=== PATIENT | male | born 1970 | race Caucasian/White ===

== ENCOUNTER 2025-03-10 02:13 | Inpatient (IN) | payer BC, SELFPAY ==
[2025-03-10] VITALS (15 sets, daily range): BP systolic 102–140; BP diastolic 49–95; PULSE 84–111; RESP 12–18; TEMP 36.7–37.3; O2SAT 94–98; BMI 28.5
--- NOTE | 2025-03-10 03:12 | CTR_ITS ---
PROCEDURE INFORMATION: Exam: CT Abdomen And Pelvis With Contrast Exam date and time: 03/10/2025 3:44 AM Age: 54 years old Clinical indication: Mass, lump, or swelling; Other: Scrotal/perineal; Other: Scrotal pain; Pain and swelling to scrotum and perineum; Additional info: Scrotal abscess ? fornier's TECHNIQUE: Imaging protocol: Computed tomography of the abdomen and pelvis with contrast. Radiation optimization: All CT scans at this facility use at least one of these dose optimization techniques: automated exposure control; mA and/or kV adjustment per patient size (includes targeted exams where dose is matched to clinical indication); or iterative reconstruction. Contrast material: OMNI 350; Contrast volume: 100 ml; Contrast route: INTRAVENOUS (IV); COMPARISON: CR XR chest 1V [id number] 05/21/2019 11:57 PM RADIATION DOSE METRICS: Total DLP (mGy-cm): 1549.03 FINDINGS: Liver: Normal. No mass. Gallbladder and biliary ducts: Normal. No calcified stones. No ductal dilation. Pancreas: Normal. No ductal dilation. Spleen: Normal. No splenomegaly. Adrenal glands: Normal. No mass. Kidneys and ureters: Normal. No hydronephrosis. Stomach and bowel: Unremarkable. No obstruction. No mucosal thickening. Appendix: No evidence of appendicitis. Intraperitoneal space: Unremarkable. No free air. No significant fluid collection. Vasculature: Unremarkable. No abdominal aortic aneurysm. Lymph nodes: Mildly prominent subcentimeter bilateral inguinal lymph nodes, likely reactive. Urinary bladder: Unremarkable as visualized. Reproductive: Unremarkable as visualized. Bones/joints: Unremarkable. No acute fracture. Soft tissues: Diffuse scrotal edema with apparent 2.5 x 1.5 cm hypoattenuating posterior scrotal collection. CT/CT abdomen pelvis w con* [id number] IMPRESSION: Diffuse scrotal edema with apparent 2.5 x 1.5 cm hypoattenuating posterior scrotal collection. Suspected abscess. Scrotal ultrasound may be helpful for further evaluation.
[2025-03-10 03:45] LABS: Hematocrit 44.0 % (37-53); Hemoglobin 15.60 g/dL (11.27-16.99); Mean Corpuscular HGB Conc 35.5 g/dL (30-55); Mean Corpuscular Hemoglobin 31.5 pg (27-33); Mean Corpuscular Volume 88.7 fl (82-101); Nucleated Red Blood Cells % 0 %; Platelet Count 204 10^3/cmm (157-399); Red Blood Count 4.96 10^6/uL (3.85-5.65); White Blood Count 17.95 10^3/uL (3.29-11.43)
[2025-03-10] MEDS: iohexol 350 mg/mL 500 mL Btl (per mL) IV (03:46)
[2025-03-10 03:54] LABS: Alanine Aminotransferase 20 U/L (0-41); Albumin Level 3.8 g/dL (3.5-5.2); Alkaline Phosphatase 101 U/L (40-130); Anion Gap 13.7 (5-19); Aspartate Amino Transferase 14 U/L (0-40); Blood Urea Nitrogen 15 mg/dL (6-20); Calcium 8.9 mg/dL (8.5-10.5); Carbon Dioxide 27 mmol/L (22-29); Chloride 94 mmol/L (98-107); Creatinine Clr Calc Pharmacy 92.9995; Globulin 3.7 g/dL (1.3-4.6); Glucose 108 mg/dL (65-115); Osmolality Calculated 273 mOsm/kg (285-295); Potassium 3.7 mmol/L (3.5-5.1); Sodium 131 mmol/L (136-145); Total Protein 7.5 g/dL (6.6-8.7)
[2025-03-10] MEDS: morphine 4 mg/mL SDV 1 mL IVP ×2 (04:12→14:53)
[2025-03-10] MEDS: piperacillin-tazobactam 3.375 GM in sodium chloride 0.9% (plus) 50 ML IV ×3 (04:14→20:09)
[2025-03-10] MEDS: lidocaine-epi 1% 20 mL INJ 10 ML INJECTION (05:19)
--- NOTE | 2025-03-10 05:24 | W.ED.SKABFB ---
HPI - Skin/Abscess/Foreign Bdy General: Chief complaint: ER Hold Stated complaint: Knot between Legs Time Seen by Provider: 03/10/25 03:04 History of Present Illness: 54 yo M with prior MRSA infection requiring surgical debridement presents with a rapidly enlarging, painful mass at the base of the scrotum. Pt first noticed tenderness earlier today (< 24 h) and describes pain ?like somebody cut me.? Mass now feels ?gumball-sized,? firm, red, and hard. Pt recalls falling eight feet from a ladder two weeks ago and wonders if trauma contributed; alternatively suspects an insect bite. No diabetes. Pain significant; seeking relief. No fever, urinary Sx, or systemic complaints mentioned. ROS otherwise not discussed. Related Data Allergies Allergy/AdvReac Type Severity Reaction Status Date / Time No Known Allergies Allergy Verified 03/10/25 02:24 Physical Exam Const: COMMON NORMALS: no acute distress, patient oriented x3 and alert HENMT: COMMON NORMALS: normocephalic and atraumatic HEAD & SCALP: normocephalic and atraumatic Eye: COMMON NORMALS: Equal, round and reactive pupils present, EOMs intact bilaterally and no scleral icterus PUPIL: Yes Equal, round and reactive pupils present Resp: COMMON NORMALS: normal respiratory effort and No retractions Cardio: COMMON NORMALS: regular rate, regular rhythm and No murmurs present (Cardio) RATE: regular rate RHYTHM: regular rhythm GI: COMMON NORMALS: Normal to inspection, nondistended, normoactive bowel sounds present, Soft to palpation and non-tender PALPATION: Yes Soft to palpation Neuro: COMMON NORMALS: patient oriented x3 SENSORIUM/ORIENTATION: Yes alert Skin: NARRATIVE SKIN EXAM: Gen: 3 cm firm, tender, red, warm nodule at base of scrotum; no crepitus, no surrounding erythema; exam consistent with scrotal abscess; no evidence of Charlette's gangrene. Procedures Abscess I/D Site: scrotum Sedation/analgesia: none Local Anesthetic: lidocaine 1% and with epi Amount of anesthesia used (mL): 5 Amount of fluid expressed (mL): 2 Irrigation: Yes Packing used?: none Course Vital Signs: Vital signs: Vital Signs Temperature 99.1 F 03/10/25 02:19 Pulse Rate 109 H 03/10/25 05:00 Respiratory Rate 18 03/10/25 05:00 Blood Pressure 138/72 03/10/25 05:00 Pulse Oximetry 97 03/10/25 05:00 Oxygen Delivery Me thod Room Air 03/10/25 05:00 MDM - Skin/Abscess/Foreign Bdy Medicial Decision Making CT scan shows 1.5 x 2.5 cm superficial scrotal fluid collection consistent with abscess which is consistent with physical exam. Abscess was anesthetized using lidocaine with epinephrine and then incised using 11 blade evacuating the purulence. He was started on broad-spectrum antibiotics. White blood cell count is elevated and he is borderline tachycardic. I do suspect infection to be the cause of these changes. He will be admitted to the hospital service for further antibiotic therapy. Packing was not placed in the abscess. Lab Data 03/10/25 03:26 03/10/25 03:26 Radiology Impressions Abdomen/Pelvis CT 03/10/25 03:12 IMPRESSION: Diffuse scrotal edema with apparent 2.5 x 1.5 cm hypoattenuating posterior scrotal collection. Suspected abscess. Scrotal ultrasound may be helpful for further evaluation. Laboratory Results WBC 17.95 10^3/uL (3.29-11.43) H 03/10/25 03:26 RBC 4.96 10^6/uL (3.85-5.65) 03/10/25 03:26 Hgb 15.60 g/dL (11.27-16.99) 03/10/25 03:26 Hct 44.0 % (37-53) 03/10/25 03:26 MCV 88.7 fl (82-101) 03/10/25 03:26 MCH 31.5 pg (27-33) 03/10/25 03:26 MCHC 35.5 g/dL (30-55) 03/10/25 03:26 RDW 13.1 % (12.1-15.1) 03/10/25 03:26 Plt Count 204 10^3/cmm (157-399) 03/10/25 03:26 MPV 8.6 fL (7.4-10.4) 03/10/25 03:26 Neut % (Auto) 80.8 % 03/10/25 03:26 Lymph % (Auto) 9.1 % 03/10/25 03:26 Mcduffie % (Auto) 8.5 % 03/10/25 03:26 Eos % (Auto) 0.8 % 03/10/25 03:26 Baso % (Auto) 0.2 % 03/10/25 03:26 Neut # (Auto) 14.53 10^3/uL (1.8-7.7) H 03/10/25 03:26 Lymph # (Auto) 1.6 10^3/uL (0.8-4.8) 03/10/25 03:26 Mcduffie # (Auto) 1.5 10^3/uL (0.2-0.9) H 03/10/25 03:26 Eos # (Auto) 0.1 10^3/uL (0.0-0.8) 03/10/25 03:26 Baso # (Auto) 0.0 10^3/uL (0.0-0.1) 03/10/25 03:26 Nucleated RBC % (auto) 0 % 03/10/25 03: Nucleated RBCs # 0.0 /100WBC 03/10/25 03:26 ESR 7 mm/hr (0-10) 03/10/25 03:26 Sodium 131 mmol/L (136-145) L 03/10/25 03:26 Potassium 3.7 mmol/L (3.5-5.1) 03/10/25 03:26 Chloride 94 mmol/L (98-107) L 03/10/25 03:26 Carbon Dioxide 27 mmol/L (22-29) 03/10/25 03:26 Anion Gap 13.7 (5-19) 03/10/25 03:26 BUN 15 mg/dL (6-20) 03/10/25 03:26 Creatinine 1.1 mg/dL (0.7-1.2) 03/10/25 03:26 GFR Calculation 70.0 mL/min (90-130) L 03/10/25 03:26 Glucose 108 mg/dL (65-115) 03/10/25 03:26 Calculated Osmolality 273 mOsm/kg (285-295) L 03/10/25 03:26 Calcium 8.9 mg/dL (8.5-10.5) 03/10/25 03:26 Total Bilirubin 1.2 mg/dL (0.15-1.2) 03/10/25 03:26 AST 14 U/L (0-40) 03/10/25 03:26 ALT 20 U/L (0-41) 03/10/25 03:26 Alkaline Phosphatase 101 U/L (40-130) 03/10/25 03:26 C-Reactive Protein 121.6 mg/L (0.0-4.9) H 03/10/25 03:26 Total Protein 7.5 g/dL (6.6-8.7) 03/10/25 03:26 Albumin 3.8 g/dL (3.5-5.2) 03/10/25 03:26 Globulin 3.7 g/dL (1.3-4.6) 03/10/25 03:26 All radiology interpretation(s) finalized by discharge Discharge Plan Discharge Patient Disposition: Admitted As Inpatient Admit Provider: Kennedy Cardona Clinical Impression: Abscess of scrotum Condition: Stable Coding Level of Care Code ED [employer] for Priscila Fish
--- NOTE | 2025-03-10 05:45 | P.HP_ITS ---
Providers/Chief Complaint 2 Admitting Physician: Kennedy Cardona Chief Complaint: Knot between Legs History of Present Illness Edloly De Paz is a 54 year old male patient with a history of a MRSA soft-tissue infection requiring surgical debridement in 2008 who presents after two weeks of progressive pain and swelling at the base of the scrotum. The pain is described as sharp, ?like somebody cut me,? and worsened yesterday, prompting an ED visit. He denies antecedent fever at home but was febrile to 99.1 ?F in the ED. He is unsure whether the current issue followed a fall from a ladder or a possible insect bite. In the ED he was tachycardic (HR 109) with leukocytosis (WBC 17.95 K/?L) and mild hyponatremia (Na 131 mEq/L). CT abdomen/pelvis demonstrated diffuse scrotal edema with a 2.5 ? 1.5 cm hypodense posterior scrotal collection concerning for abscess. Bedside I&D was performed and packing placed; IV vancomycin, lidocaine, and 1 L NS bolus were given. The patient reports transient chest tightness upon arrival, now resolved, and denies shortness of breath, cough, vomiting, or diarrhea. No history of diabetes. Social history notable for tobacco (5?6 cigarettes/day), occasional alcohol (about weekly), and marijuana use. No medication allergies reported. Review of Systems 2 Const: Denies: fever(s), chills, body aches or malaise ENMT: Denies: throat pain Card: Denies: chest pain, edema, pre-syncope or dyspnea on exertion Resp: Denies: dyspnea, productive cough, change in phlegm color or hemoptysis GI: Denies: abdominal pain, nausea, vomiting, diarrhea, constipation, hematochezia or melena : Reports: testicular mass and scrotal swelling; Denies: flank pain, difficulty urinating, urinary frequency or hematuria Musc: Denies: back pain, joint swelling or joint redness Skin/Breast: Denies: rash or new lesions Neuro: Denies: headache(s) or confusion Medications/Allergies Allergies Allergy/AdvReac Type Severity Reaction Status Date / Time No Known Allergies Allergy Verified 03/10/25 02:24 PFSH Acute 2 PFSH: Medical History (Updated 03/10/25 @ 05:55 by Kennedy Cardona MD) Abscess MRSA (methicillin resistant staph aureus) culture positive Social History (Updated 03/10/25 @ 05:56 by Kennedy Cardona MD) Smoking and tobacco/nicotine status: current every day tobacco/nicotine user cigarettes Number of cigarettes per day: 6-10 Alcohol intake: current Alcohol intake frequency: few times a month Substance/Drug Use: current Substance/Drug use type: Marijuana Household members: spouse Marital status: Vitals/I&O/Wt Last Vital Signs Temp 99.1 F 03/10/25 02:19 Pulse 109 H 03/10/25 05:00 Resp 18 03/10/25 05:00 BP 138/72 03/10/25 05:00 Pulse Ox 97 03/10/25 05:00 O2 Del Method Room Air 03/10/25 05:00 03/09/25 03/09/25 03/10/25 14:59 22:59 06:59 Intake Total 1050 / 1050 Balance 1050 / 1050 Weight last 48 hrs Weight 95.254 kg Physical Exam 2 Const: COMMON NORMALS: patient oriented x3 and alert GENERAL APPEARANCE: c ooperative ORIENTATION/CONSCIOUSNESS: Yes awake HENMT: COMMON NORMALS: oropharynx normal Neck/C-Spine: COMMON NORMALS: no JVD Resp: COMMON NORMALS: normal respiratory effort and clear to auscultation bilaterally AUSCULTATION: clear to auscultation bilaterally Cardio: COMMON NORMALS: no JVD, regular rhythm, S1 normal heart sound present, S2 normal heart sound present and No murmurs present (Cardio) RHYTHM: regular rhythm HEART SOUNDS: S1 normal heart sound present and S2 normal heart sound present GI: COMMON NORMALS: Normal to inspection, nondistended, normoactive bowel sounds present, Soft to palpation and non-tender PALPATION: Yes Soft to palpation : OTHER: Scrotal edema close to the perineum with surrounding cellulitis, status post I&D, no purulent drainage, additional small lumps around the main area of edema without fluctuance. No blisters. Extremity: COMMON NORMALS: no joint enlargement and no pedal edema Neuro: COMMON NORMALS: patient oriented x3 and moves all extremities S ENSORIUM/ORIENTATION: Yes alert Skin: COMMON NORMALS: no rashes or lesions noted GENERAL SKIN EXAM: no rashes or lesions noted Quick SOFA Score: Respiratory Rate: 18 Blood Pressure: 138/72 Chely Coma Scale: 15 qSOFA Score: 0 If qSOFA score 2 or greater, continue: Blood Pressure Mean: 94 Bilirubin (mg/dl): 1.2 Platelets (x10?/ml): 204 Creatinine (mg/dl): 1.1 Evaluation: Current stage of sepsis: sepsis Sepsis stage criteria used: [facility] Sep-1 and Sepsis-3 Focused Exam: Vital signs: Temp Pulse Resp BP Pulse Ox O2 Del Method 03/10/25 05:00 109 H 18 138/72 97 Room Air 03/10/25 04:12 17 03/10/25 03:56 99 18 140/95 96 Room Air 03/10/25 02:19 99.1 F 111 H 18 122/69 98 Room Air Respiratory exam: CTA bilaterally Capillary refill: < 3 Seconds Skin exam: no mottling Date exam was performed: 03/10/25 Time exam was performed: 06:11 2 Sepsis Screen No Definite Risk Today, 05:00 Respiratory Rate, (12 - 18) 18 breaths/min Today, 05:00 Blood Pressure 138/72 mmHg Today, 05:00 Chely Coma Scale Score 15 Today, 05:00 Quick SOFA Score 0 Today, 05:00 SOFA Score: 2 Chely Coma Scale Score 15 Today, 05:00 Blood Pressure Mean 94 mmHg Today, 05:00 Total Bilirubin, (0.15-1.2) 1.2 mg/dL Today, 03:26 Platelet Count, (157-399) 204 10^3/cmm Today, 03:26 Creatinine, (0.7-1.2) 1.1 mg/dL Today, 03:26 Data 03/10/25 03:26 03/10/25 03:26 A&P Assessment and plan 1. Abscess of scrotum: Scrotal abscess with cellulitis (suspected MRSA) : Posterior scrotal abscess (2.5 ? 1.5 cm) drained in ED; residual indurated nodules; history of prior MRSA infection; receiving IV vancomycin and Zosyn. Reviewed vitals, CBC, CMP, lactic acid, CT abdomen pelvis, ED provider note, discussed with ED provider. Has history of MRSA infection requiring extensive debridement in bilateral groins in the past. Status post I&D in emergency department. Still noted area of swelling, small lumps also around the area of main swelling. No further purulent drainage from the site of I&D. - Continue IV vancomycin plus Zosyn for broad-spectrum and MRSA coverage. - Obtain scrotal ultrasound to evaluate for additional drainable collections. - Send wound culture from drained site (requested). - Consult surgery for possible additional drainage depending on ultrasound results; consider transfer if urologic expertise required. - Monitor pain and wound appearance daily. Plan: Sepsis: Sinus tachycardia, leukocytosis, low-grade fever; concern for systemic infection. - Draw lactic acid and obtain blood cultures. - Monitor vitals, urine output, and mental status. - Continue IV fluids as needed for hemodynamic support. - Trend WBC and inflammatory markers (e.g., CRP). Nicotine dependence : Patient smokes 5?6 cigarettes/day. - Offer nicotine replacement therapy (patches) during hospitalization. - Provide smoking-cessation counseling and resources. PDMP PDMP Reviewed: Not Reviewed Attestations 2 Medical Necessity Statement*: Place in observation for additional assessment and management of scrotal purulent cellulitis with abscess and gentleman with history of MRSA and past history of soft tissue MRSA infection requiring extensive debridement, with possible sepsis. and High MDM includes amount and/or complexity of data reviewed/ordered [ previous or external records, resulted lab(s)/test(s), ordered lab(s)/test(s) and other healthcare professional discussion] and described risk of complication, morbidity or mortality of management as documented Diagnoses Abscess of scrotum N49.2
--- NOTE | 2025-03-10 05:46 | US_ITS ---
WS: [id number] TESTICULAR ULTRASOUND HISTORY: Base of scrotum COMPARISON: None available. TECHNIQUE: Real-time and color Doppler imaging utilized to perform a testicular ultrasound. Right testicle: 4.2 cm x 2.1 cm x 2.6 cm. Normal size and echogenicity. No mass or torsion. Scattered microcalcifications. Normal color Doppler is present throughout. Systolic and diastolic velocities are both present. Small complex hydrocele. Right epididymis: Increased vascularity and heterogeneity and enlargement of the RIGHT epididymis. Left testicle: 4.0 cm x 2.8 cm x 2.2 cm. Normal size and echogenicity. No mass or torsion. Normal color Doppler is present throughout. Systolic and diastolic velocities are both present. No significant hydrocele. Left epididymis: Normal epididymis with no increased vascularity. There is a large amount of scrotal wall edema which is diffuse. Ultrasound along the posterior scrotal sac demonstrates a large amount of edema and inflammatory changes but no well-circumscribed abscess. US/US scrotum [id number] IMPRESSION: 1. No scrotal wall abscess identified. 2. Large amount of diffuse scrotal wall edema and inflammatory changes. No foc al collection. 3. Acute RIGHT epididymitis.
[2025-03-10 06:04] LABS: Lactic Sepsis W/Reflex 1.1 mmol/L (0.5-2.2)
--- NOTE | 2025-03-10 07:53 | PC.PHAR ---
Spouse verified pt takes no maintenance medications at all. Occasionally takes a tylenol 500mg.
[2025-03-10 08:30] LABS: Glucose Urine UA Negative (Normal); Nitrate Urine Negative (Negative)
[2025-03-10 08:36] LABS: Add Urine Microscopic? YES
[2025-03-10 08:38] LABS: Specific Gravity, Urine 1.051 (1.005-1.030)
--- NOTE | 2025-03-10 10:30 | PHA.VACGOAL ---
Vancomycin Goal - Goal Vancomycin Goal:: 15-20 mg/L Vancomycin Indication:: Other - Therapy Current therapy:: Pip/Tazo Day of therpy:: Day []of [] . Actual body weight (kg): 210 lb - Data Labs: WBC 17.95 10^3/uL (3.29-11.43) H 03/10/25 03:26 RBC 4.96 10^6/uL (3.85-5.65) 03/10/25 03:26 Hgb 15.60 g/dL (11.27-16.99) 03/10/25 03:26 Hct 44.0 % (37-53) 03/10/25 03:26 MCV 88.7 fl (82-101) 03/10/25 03:26 MCH 31.5 pg (27-33) 03/10/25 03:26 MCHC 35.5 g/dL (30-55) 03/10/25 03:26 RDW 13.1 % (12.1-15.1) 03/10/25 03:26 Sodium 131 mmol/L (136-145) L 03/10/25 03:26 Potassium 3.7 mmol/L (3.5-5.1) 03/10/25 03:26 Chloride 94 mmol/L (98-107) L 03/10/25 03:26 Carbon Dioxide 27 mmol/L (22-29) 03/10/25 03:26 Anion Gap 13.7 (5-19) 03/10/25 03:26 BUN 15 mg/dL (6-20) 03/10/25 03:26 Creatinine 1.1 mg/dL (0.7-1.2) 03/10/25 03:26 GFR Calculation 70.0 mL/min (90-130) L 03/10/25 03:26 Last dialysis session:: N/A Treatment plan:: new consult Regimen:: LOADING DOSE OF 1500 MG X 1 GIVEN IN ER MAINTENANCE DOSE OF 2000 MG Q12H PER DOSING PROTOCOL Follow up:: WILL CONTINUE TO MONITOR AND FOLLOW UP DAILY
--- NOTE | 2025-03-10 20:09 | P.PN_ITS ---
Subjective 2 Subjective: Patient is doing okay at rounds later on complaining of a lot of pain Dilaudid given and I think at this point we will continue or initiate anti-inflammatory type of medicine such as Toradol patient has good renal function will follow through for the next 5 days in treatment. Vitals/I&O/Wt Last Vital Signs Temp 98.1 F 03/10/25 19:32 Pulse 88 03/10/25 19:32 Resp 16 03/10/25 19:32 BP 119/66 03/10/25 19:32 Pulse Ox 95 03/10/25 19:32 O2 Del Method Room Air 03/10/25 19:32 03/10/25 03/10/25 03/10/25 06:59 14:59 22:59 Intake Total 1050 / 1050 300 / 300 450 / 750 Output Total 700 / 700 Balance 1050 / 1050 -400 / -400 450 / 50 Weight last 48 hrs Weight 92.533 kg Weight 95.254 kg Physical Exam 2 Narrative: Patient is doing okay with at the bedside. HEENT normocephalic/atraumatic neck neck is supple cardiovascular heart rate is regular lungs are pretty much clear abdomen soft nontender nondistended remarkable for much scrotal abscess in the posterior area and midline inferior very hard. Patient status post incision and drainage at the emergency room. Extremities are intact no edema has good pulses neurology has no focality lab studies lab studies reviewed and noted. Data 03/11/25 04:25 03/11/25 04:25 Micro: Microbiology 03/10/25 03:31 Blood Culture - Preliminary Blood SPECIMEN COLLECTED 03/10/25 03:26 Blood Culture - Preliminary Blood SPECIMEN COLLECTED A&P Assessment and plan 1. Abscess of scrotum: Scrotal abscess status post drainage in the ED - Monitor closely as antibiotics therapy continues - Monitor for improvement. And intent for being to get surgery today was halted by the surgeon Dr. Holloway who told me that he had mention to the ED that this is a urology case and to transfer this patient to urology care. Somehow patient got admitted to the hospitalist and at this time that surgery cannot do anything for the patient and then felt we should try close monitoring with IV antibiotics at this time. The infection is very deep and bromine into the floor of the testicles. Patient is on very good antibiotics with Zosyn for anaerobic coverage I will like to add clindamycin in this case patient also had gram-positive coverage with vancomycin. I am giving double coverage for anaerobic and gram-negative because of the severity of this infection and this infection only started yesterday 1 day and the patient came to the emergency room. 2. Leukocytosis: Continue antibiotics with vancomycin to cover MRSA and Zosyn to cover the anaerobes patient with abscess Follow leukocytosis for a desired optimization. Will add clindamycin for double coverage for anaerobic's We will follow-up with the cultures that we had drawn from the emergency room at incision and drainage 3. Pain: Scrotal pain might be multifactorial - Epididymal pain versus superficial skin pain - Send off for a GC and chlamydia probe, must rule out STDs Plan: GI and DVT prophylaxis in place PDMP PDMP Reviewed: Last Reviewed 03/11/25 15:55 by Hannah Marshall MD Attestations 2 Medical Necessity Statement*: Patient with severe lower extremity cellulitis and abscess along with epididymitis patient will require at least 2 midnights to optimize care patient qualify for inpatient. Coding Level of Care Code 18988 Diagnoses Abscess of scrotum N49.2 Leukocytosis D72.829 Pain R52 Time Spent (min) 35
[2025-03-10 20:49] LABS: HIV 1 & 2 Antigen Non-Reactive (Non-Reactiv)
[2025-03-10 23:39] LABS: Rapid Plasma Reagin Syphilis Nonreactive (Nonreactive)
[2025-03-11 04:00] VITALS: BP 121/69; PULSE 87; RESP 16; TEMP 36.6; O2SAT 95
[2025-03-11] MEDS: piperacillin-tazobactam 3.375 GM in sodium chloride 0.9% (plus) 50 ML IV ×3 (04:34→20:25)
[2025-03-11 05:02] LABS: Hematocrit 43.7 % (37-53); Hemoglobin 14.90 g/dL (11.27-16.99); Mean Corpuscular HGB Conc 34.1 g/dL (30-55); Mean Corpuscular Hemoglobin 31.0 pg (27-33); Mean Corpuscular Volume 91.0 fl (82-101); Nucleated Red Blood Cells % 0 %; Platelet Count 195 10^3/cmm (157-399); Red Blood Count 4.80 10^6/uL (3.85-5.65); White Blood Count 14.22 10^3/uL (3.29-11.43)
[2025-03-11 05:16] LABS: Anion Gap 15.9 (5-19); Blood Urea Nitrogen 9 mg/dL (6-20); Calcium 8.6 mg/dL (8.5-10.5); Carbon Dioxide 22 mmol/L (22-29); Chloride 101 mmol/L (98-107); Creatinine Clr Calc Pharmacy 125.0516; Glucose 129 mg/dL (65-115); Osmolality Calculated 280 mOsm/kg (285-295); Potassium 3.9 mmol/L (3.5-5.1); Sodium 135 mmol/L (136-145)
[2025-03-11 05:38] LABS: Neisseria Gonorrhea NOT DETECTED (Negative)
[2025-03-11 07:11] VITALS: BP 112/70; PULSE 65; RESP 18; TEMP 36.6; O2SAT 97
[2025-03-11 11:18] VITALS: BP 114/70; PULSE 66; RESP 16; TEMP 36.4; O2SAT 96
[2025-03-11 15:44] VITALS: BP 115/66; PULSE 86; RESP 18; TEMP 36.6; O2SAT 95
--- NOTE | 2025-03-11 15:57 | P.PN_ITS ---
Subjective 2 Subjective: Patient is doing well and will continue to follow through closely will monitor for gangrene of the Vitals/I&O/Wt Last Vital Signs Temp 98 F 03/11/25 15:44 Pulse 86 03/11/25 15:44 Resp 18 03/11/25 15:44 BP 115/66 03/11/25 15:44 Pulse Ox 95 03/11/25 15:44 O2 Del Method Room Air 03/11/25 15:44 03/11/25 03/11/25 03/11/25 06:59 14:59 22:59 Intake Total 950 / 2250 739.167 / 739.167 Output Total 1175 / 1875 Balance -225 / 375 739.167 / 739.167 Weight last 48 hrs Weight 90.582 kg Weight 92.533 kg Weight 95.254 kg Physical Exam 2 Narrative: Currently patient is in some distress for pain. Scheduled Toradol will do well and help as an anti-inflammatory HEENT normocephalic/atraumatic neck neck is supple cardiovascular heart rate is regular lungs are pretty much clear abdomen soft nontender nondistended remarkable for tract infection with scrotal abscess and epididymitis extremities are intact no edema has good pulses neurology has no focality lab studies lab studies reviewed and noted. Data 03/11/25 04:25 03/11/25 04:25 Micro: Microbiology 03/10/25 03:31 Blood Culture - Preliminary Blood NEGATIVE TO DATE 03/10/25 03:26 Blood Culture - Preliminary Blood NEGATIVE TO DATE A&P Assessment and plan 1. Pain: 2. Leukocytosis: 3. Abscess of scrotum: 4. Epididymitis: Plan: 1. Abscess of scrotum: Scrotal abscess status post drainage in the ED - Monitor closely as antibiotics therapy continues - Monitor for improvement. An intent for consult for today. This was halted by the surgeon Dr. Holloway who told me that he had mention to the ED that this is a urology case and to transfer this patient to urology care. Somehow patient got admitted to the hospitalist and at this time that surgery cannot do anything for the patient because they are not urology and then felt we should try close monitoring with IV antibiotics at this time. The infection is very deep into the pelvic floor of the testicles. Patient is on very with very good antibiotics coverage with Zosyn for anaerobic importantly and coverage for gram-negative and gram-positive. I will like to add clindamycin for double coverage for anaerobic and gram-negative and positive. The patient also has coverage for gram-positive significant for MRSA strep and other staffs with vancomycin. 2. Leukocytosis: Continue antibiotics with vancomycin to cover MRSA and Zosyn to cover the anaerobes patient with abscess Follow leukocytosis for a desired optimization. Will add clindamycin for double coverage for anaerobic's We will follow-up with the cultures that we had drawn from the emergency room at incision and drainage 3. Pain: Scrotal pain might be multifactorial - Epididymal pain versus superficial skin pain - Send off for a GC and chlamydia probe, must rule out STDs - PDMP PDMP Reviewed: Last Reviewed 03/11/25 15:55 by Hannah Marshall MD Attestations 2 Medical Necessity Statement*: Patient is with scrotal abscess in need for IV antibiotics continuing and close monitoring for gangrene event Coding Level of Care Code 25686 Diagnoses Pain R52 Leukocytosis D72.829 Abscess of scrotum N49.2 Epididymitis N45.1 Time Spent (min) 30
[2025-03-11 20:00] VITALS: BP 107/65; PULSE 73; RESP 14; TEMP 36.7; O2SAT 97
[2025-03-11 23:45] VITALS: BP 106/61; PULSE 74; RESP 12; TEMP 36.6; O2SAT 97
[2025-03-12 04:00] VITALS: BP 91/58; PULSE 76; RESP 14; TEMP 36.6; O2SAT 96
[2025-03-12] MEDS: piperacillin-tazobactam 3.375 GM in sodium chloride 0.9% (plus) 50 ML IV ×3 (05:19→21:34)
[2025-03-12 06:59] VITALS: BP 153/61; PULSE 54; RESP 18; TEMP 36.4; O2SAT 97
[2025-03-12 09:08] LABS: Hematocrit 42.5 % (37-53); Hemoglobin 14.90 g/dL (11.27-16.99); Mean Corpuscular HGB Conc 35.1 g/dL (30-55); Mean Corpuscular Hemoglobin 32.0 pg (27-33); Mean Corpuscular Volume 91.2 fl (82-101); Nucleated Red Blood Cells % 0 %; Platelet Count 234 10^3/cmm (157-399); Red Blood Count 4.66 10^6/uL (3.85-5.65); White Blood Count 7.53 10^3/uL (3.29-11.43)
[2025-03-12 11:49] VITALS: BP 104/63; PULSE 71; RESP 18; TEMP 36.5; O2SAT 95
--- NOTE | 2025-03-12 13:10 | P.PN_ITS ---
Subjective 2 Subjective: Patient is doing much better with less pain on Toradol. Patient is with scrotal abscess and epididymis extensive inflammation. Patient is on triple antibiotic double coverage of anaerobic with clindamycin and Zosyn. MRSA and other gram-positive epi also with double coverage with vancomycin and clindamycin as well this patient infection is very extensive and all symptomatology happening within 24 hours which is very concerning Vitals/I&O/Wt Last Vital Signs Temp 97.7 F 03/12/25 11:49 Pulse 71 03/12/25 11:49 Resp 18 03/12/25 11:49 BP 104/63 03/12/25 11:49 Pulse Ox 95 03/12/25 11:49 O2 Del Method Room Air 03/12/25 06:59 03/11/25 03/12/25 03/12/25 22:59 06:59 14:59 Intake Total 1900.833 / 2640.000 750 / 3390.000 820 / 820 Balance 1900.833 / 2640.000 750 / 3390.000 820 / 820 Weight last 48 hrs Weight 90.582 kg Weight 92.533 kg Physical Exam 2 Narrative: Generally patient is doing well and in mild to moderate distress. Improved from yesterday. Patient had not had any fever and the white count had finally resolved from a 17,000 then down to 14,000 and now down to normal white count of 9 Will continue triple IV antibiotics for today and they will follow through with oral antibiotics if all stays equal for a discharge tomorrow HEENT normocephalic atraumatic neck neck is supple cardiovascular heart is regular lungs are pretty much clear abdomen soft nontender nondistended. is remarkable for scrotal abscess. Extremities intact no edema has good pulses neurology has no focality lab studies lab studies reviewed and noted. Data 03/12/25 08:56 03/11/25 04:25 A&P Assessment and plan 1. Epididymitis: Likely more inflammation from the scrotal abscess erythema had cleared completely. Continue IV antibiotics patient had a triple antibiotics of vancomycin Zosyn and clindamycin. - Continue anti-inflammatory pain medication such as Toradol and this is helping the patient very much 2. Pain: Pain is responding to Toradol which is an anti-inflammatory and this is helping the patient at this time. 3. Leukocytosis: Leukocytosis had resolved today to white count of 7000 from is 17,000 as of yesterday. Patient is responding to therapy 4. Abscess of scrotum: Patient had scrotal abscess and was status post drainage in the emergency room. Scrotal abscess was very hard and inferiorly very hard to where it is not fluctuant even post drainage Continue and aggressive IV antibiotics recommended I followed up with this along with anti-inflammatory pain medication such as Toradol Today patient is feeling much better and white count is normal Actually wanted to leave AGAINST MEDICAL ADVICE today that she is feeling well and I spoke with him that he is doing well because his son treatment. I will continue what I am doing at this time into tomorrow if is prospects for patient to leave patient can be on good coverage of oral antibiotics such as Zyvox that will cover you know Vanco resistant staph and other staph and strep species and also then have the patient on Augmentin. Orally when going home. Must continue to follow through and optimize Plan: Patient pain management is optimal and doing okay patient feels good. PDMP PDMP Reviewed: Last Reviewed 03/12/25 13:34 by Hannah Marshall MD Attestations 2 Medical Necessity Statement*: Patient is doing well on triple IV antibiotics we will continue to treat as patient area is still inflamed and will need another day or 2 prior to discharge for this extensive scrotal abscess. Coding Level of Care Code 33645 Diagnoses Epididymitis N45.1 Pain R52 Leukocytosis D72.829 Abscess of scrotum N49.2 Time Spent (min) 30
[2025-03-12 16:44] VITALS: BP 124/70; PULSE 74; RESP 18; TEMP 36.8; O2SAT 100
[2025-03-12 19:51] VITALS: BP 92/54; PULSE 77; RESP 15; TEMP 36.7; O2SAT 97
[2025-03-12] MEDS: ondansetron 2 mg/ML SDV 2 mL 4 MG IVP (23:56)
[2025-03-13] VITALS: BP 101/58; PULSE 70; RESP 12; TEMP 36.6; O2SAT 99
[2025-03-13 04:00] VITALS: BP 109/63; PULSE 71; RESP 15; TEMP 36.4; O2SAT 99
[2025-03-13 05:12] LABS: Hematocrit 41.5 % (37-53); Hemoglobin 14.80 g/dL (11.27-16.99); Mean Corpuscular HGB Conc 35.7 g/dL (30-55); Mean Corpuscular Hemoglobin 32.0 pg (27-33); Mean Corpuscular Volume 89.8 fl (82-101); Nucleated Red Blood Cells % 0 %; Platelet Count 234 10^3/cmm (157-399); Red Blood Count 4.62 10^6/uL (3.85-5.65); White Blood Count 6.82 10^3/uL (3.29-11.43)
[2025-03-13] MEDS: piperacillin-tazobactam 3.375 GM in sodium chloride 0.9% (plus) 50 ML IV ×2 (06:03→11:45)
[2025-03-13 07:56] VITALS: BP 112/71; PULSE 68; RESP 14; TEMP 36.4; O2SAT 100
[2025-03-13 11:35] VITALS: BP 121/81; PULSE 71; RESP 14; TEMP 36.4; O2SAT 99
--- NOTE | 2025-03-13 12:02 | P.DS_ITS ---
Discharge Providers Date of Admission: 03/10/25 20:09 Date of Discharge: March 13, 2025 Attending Provider at Admission: Kennedy Cardona Attending Provider at Discharge: Hannah Marshall MD Consults: Surgeon consulted recommendation is to continue with IV antibiotics this is more of a urological consultation Primary Care Provider: PCP Diagnoses at Discharge Discharge Diagnosis 1. Epididymitis: 2. Pain: 3. Leukocytosis: 4. Abscess of scrotum: Reason for Visit Reason for Visit: Knot between Legs Hospital Course Hospital Course Prince De Paz is a 54 year old male patient with a history of a MRSA soft-tissue infection requiring surgical debridement in 2008 who presents after two weeks of progressive pain and swelling at the base of the scrotum. The pain is described as sharp, ?like somebody cut me,? and worsened yesterday, prompting an ED visit. He denies antecedent fever at home but was febrile to 99.1 ?F in the ED. He is unsure whether the current issue followed a fall from a ladder or a possible insect bite. In the ED he was tachycardic (HR 109) with leukocytosis (WBC 17.95 K/?L) and mild hyponatremia (Na 131 mEq/L). CT abdomen/pelvis demonstrated diffuse scrotal edema with a 2.5 ? 1.5 cm hypodense posterior scrotal collection concerning for abscess. Bedside I&D was performed and packing placed; IV vancomycin, lidocaine, and 1 L NS bolus were given. The patient reports transient chest tightness upon arrival, now resolved, and denies shortness of breath, cough, vomiting, or diarrhea. No history of diabetes. Social history notable for tobacco (5?6 cigarettes/day), occasional alcohol (about weekly), and marijuana use. No medication allergies reported. Patient white count has resolved down to normal patient did not have any fever site of the scrotal abscess is almost gone and redness had gone away. Epididymitis redness you in the area had resolved. Patient had been on triple antibiotics of Zosyn vancomycin and clindamycin. Patient had gone through incision and drainage from the emergency room. At this time patient is getting very adamant about going home but patient also had been optimized I follow through with discharging the patient at this time I have to for IV antibiotics optimization follow urine I AND D drainage of the abscess, patient is discharged with the antibiotics of augumentin 500/125 mg 1 tablet twice daily for 10 days and clindamycin 150 mg 1 tablet every 8 hours x 10 days. Patient to complete this antibiotics. And patient to follow-up with the PCP within 1 week of this day of discharge. Physical Exam Narrative: Patient is doing well in no apparent distress at this time no pain. Patient has been ordered Toradol 10 mg 1 tablet p.o. twice daily x 5 days. HEENT normocephalic/atraumatic neck neck is supple cardiovascular heart rate is regular lungs are pretty much clear abdomen soft nontender nondistended unremarkable extremities are intact no edema has good pulses neurology has no focality lab studies lab studies reviewed and noted. Discharge Data Studies Completed and Pending Completed Studies During Hospitalization Category Date Time Status CT abdomen pelvis w con* [id number] Stat Cat Scan 03/10/25 03:12 Completed US scrotum [id number] Routine Ultrasound 03/10/25 05:46 Completed Pending at discharge Category Date Time Status Blood Culture Stat Lab 03/10/25 03:31 Results Creatinine AM LABS Lab 03/14/25 04:00 Ordered Herpes Simplex Virus 1 & 2 TMA Routine Lab 03/10/25 20:19 Received Wound Culture and Gram Stain Routine Lab 03/13/25 09:25 Received Radiology Impressions Abdomen/Pelvis CT 03/10/25 03:12 IMPRESSION: Diffuse scrotal edema with apparent 2.5 x 1.5 cm hypoattenuating posterior scrotal collection. Suspected abscess. Scrotal ultrasound may be helpful for further evaluation. Scrotum Ultrasound 03/10/25 05:46 IMPRESSION: 1. No scrotal wall abscess identified. 2. Large amount of diffuse scrotal wall edema and inflammatory changes. No focal collection. 3. Acute RIGHT epididymitis. Laboratory Results WBC 6.82 10^3/uL (3.29-11.43) 03/13/25 04:32 RBC 4.62 10^6/uL (3.85-5.65) 03/13/25 04:32 Hgb 14.80 g/dL (11.27-16.99) 03/13/25 04:32 Hct 41.5 % (37-53) 03/13/25 04:32 MCV 89.8 fl (82-101) 03/13/25 04:32 MCH 32.0 pg (27-33) 03/13/25 04:32 MCHC 35.7 g/dL (30-55) 03/13/25 04:32 RDW 12.8 % (12.1-15.1) 03/13/25 04:32 Plt Count 234 10^3/cmm (157-399) 03/13/25 04:32 MPV 9.1 fL (7.4-10.4) 03/13/25 04:32 Neut % (Auto) 54.5 % 03/13/25 04:32 Lymph % (Auto) 27.6 % 03/13/25 04:32 [place] % (Auto) 9.4 % 03/13/25 04:32 Eos % (Auto) 7.6 % 03/13/25 04:32 Baso % (Auto) 0.6 % 03/13/25 04:32 Neut # (Auto) 3.72 10^3/uL (1.8-7.7) 03/13/25 04:32 Lymph # (Auto) 1.9 10^3/uL (0.8-4.8) 03/13/25 04:32 [place] # (Auto) 0.6 10^3/uL (0.2-0.9) 03/13/25 04:32 Eos # (Auto) 0.5 10^3/uL (0.0-0.8) 03/13/25 04:32 Baso # (Auto) 0.0 10^3/uL (0.0-0.1) 03/13/25 04:32 Nucleated RBC % (auto) 0 % 03/13/25 04:32 Nucleated RBCs # 0.0 /100WBC 03/13/25 04:32 ESR 7 mm/hr (0-10) 03/10/25 03:26 Sodium 135 mmol/L (136-145) L 03/11/25 04:25 Potassium 3.9 mmol/L (3.5-5.1) 03/11/25 04:25 Chloride 101 mmol/L (98-107) 03/11/25 04:25 Carbon Dioxide 22 mmol/L (22-29) 03/11/25 04:25 Anion Gap 15.9 (5-19) 03/11/25 04:25 BUN 9 mg/dL (6-20) 03/11/25 04:25 Creatinine 0.8 mg/dL (0.7-1.2) 03/11/25 04:25 GFR Calculation 101.1 mL/min (90-130) 03/11/25 04:25 Glucose 129 mg/dL (65-115) H 03/11/25 04:25 Calculated Osmolality 280 mOsm/kg (285-295) L 03/11/25 04:25 Lactic Acid 1.1 mmol/L (0.5-2.2) 03/10/25 03:26 Calcium 8.6 mg/dL (8.5-10.5) 03/11/25 04:25 Total Bilirubin 1.2 mg/dL (0.15-1.2) 03/10/25 03:26 AST 14 U/L (0-40) 03/10/25 03:26 ALT 20 U/L (0-41) 03/10/25 03:26 Alkaline Phosphatase 101 U/L (40-130) 03/10/25 03:26 C-Reactive Protein 121.6 mg/L (0.0-4.9) H 03/10/25 03:26 Total Protein 7.5 g/dL (6.6-8.7) 03/10/25 03:26 Albumin 3.8 g/dL (3.5-5.2) 03/10/25 03:26 Globulin 3.7 g/dL (1.3-4.6) 03/10/25 03:26 Urine Color Dark yellow (Yellow) A 03/10/25 08:15 Urine Appearance Clear (CLEAR) 03/10/25 08:15 Urine pH 5.5 (5-7) 03/10/25 08:15 Ur Specific [place] 1.051 (1.005-1.030) H 03/10/25 08:15 Urine Protein Trace (Negative) A 03/10/25 08:15 Urine Glucose (UA) Negative (Normal) 03/10/25 08:15 Urine Ketones Trace (Negative) 03/10/25 08:15 Urine Blood Negative (Negative) 03/10/25 08:15 Urine Nitrate Negative (Negative) 03/10/25 08:15 Urine Bilirubin Negative (Negative) 03/10/25 08:15 Urine Urobilinogen 1.0 mg/dL (Negative) 03/10/25 08:15 Ur Leukocyte Esterase Negative (Negative) 03/10/25 08:15 Urine RBC 0-2 /hpf (0-2) 03/10/25 08:15 Urine WBC 0-5 /hpf (0-5) 03/10/25 08:15 Ur Squamous Epith Cells 0-5 /hpf (0-5) 03/10/25 08:15 Amorphous Sediment Not Reportable 03/10/25 08:15 Urine Bacteria None seen /hpf (NONE) 03/10/25 08:15 Hyaline Casts 1.65 /lpf 03/10/25 08:15 Vancomycin Trough 13.6 ug/mL (10-15) 03/12/25 13:02 RPR Nonreactive (Nonreactive) 03/10/25 03:26 C. trachomatis (PCR) Not detected (Negative) 03/11/25 04:00 HIV 1&2 Ab & HIV 1 Ag Non-reactive (Non-Reactiv) 03/10/25 03:26 HIV 1&2 Antibody Non-reactive (Non-Reactiv) 03/10/25 03:26 N. 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 Discharge Order = DC NOW: Discharge Order (Routine); Ordered 03/13/25 Ordered By: Hannah Marshall Referrals: pcp [Other] Referral Note: Patient to follow-up with the PCP within 1 week of discharge for scrotal abscess that is resolving Discharge Diet: Cardiac Discharge Activity: Resume usual activity Patient Instructions: Clindamycin (By mouth), Amoxicillin/Clavulanate Potassium (By mouth) (Augmentin, Augmentin..., Ketorolac (By mouth), Epididymitis, Leukocytosis (DC), Abscess (GEN), Opioid Safety, Patient Portal & Jeanine Instructions Discharge Attestations Time Spent in Discharge Care*: less than 30 min Quality Metrics Clinical Quality Measures [ No reported AMI, CVA or VTE this stay] Coding Level of Care Code 07391 Diagnoses Epididymitis N45.1 Pain R52 Leukocytosis D72.829 Abscess of scrotum N49.2 Time Spent (min) 30
[2025-03-13 12:35] VITALS: BP 121/81; PULSE 71; RESP 15; TEMP 36.4; O2SAT 99
== END 2025-03-13 12:37 | disposition home or self-care (01) | DRG 717 ==
LOC: ER 03:04 → ER IP 05:27 → MEDSURG 14:53
PROVIDERS: Admitting Provider Internal Medicine; Emergency Provider Student in an Organized Health Care Education/Training Program; Visit Provider Internal Medicine
DX: N45.1 Epididymitis (principal); E87.1 Hypo-osmolality and hyponatremia; Z86.14 Personal history of Methicillin resistant Staphylococcus aureus infection; R00.0 Tachycardia, unspecified
CPT/HCPCS: 36415; 74177; 76870; 80048; 80053; 80202; 81001; 83605; 85025; 85651; 86140; 86592; 87040; 87070; 87075; 87077; 87186; 87205; 87491; 87529; 87591; 87806; 96365; 96366; 96367; 96372; 96375; 99285; G0378; J1650; J1885; J2270; J2405; J2543; J3372; J3373; J3490; J7030; J9999